=== PATIENT | male | born 1975 | race Caucasian/White ===

== ENCOUNTER 2024-12-06 00:25 | Emergency (ER) | payer SELFPAY ==
--- OUTSIDE RECORDS SUMMARY | 2022-07-25 10:07 | XMS_ITS | Continuity of Care Document ---
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 [address] [place], [place], [address] . tel: [phone] [facility], [address] [place], [place], [address] tel: [phone] [facility] No Information 2 James [place]. [address], [place], [address] . tel: [phone] OFFICE/OUTPAT IENT VISIT EST [facility], [address] [place], [place], [address] tel: [phone] [facility] Nursing Comments (chief complaint)H ep C Treatment Initiation (chief complaint) Body mass index (BMI) 28.0-28.9, adultChronic hepatitis C without hepatic coma 2 James [place]. [address], [place], [address] . tel: [phone] [facility], [address] [place], [address] tel:[phone] [facility] Personal history of other infectious and parasitic diseases 2 James [place]. [address], [place], [address] . tel: [phone] [facility], [address] [place], [address] tel:[phone] [facility] History of hepatitis C 2 James [place]. [address], [place], [address] . tel: [phone] [facility], [address] [place], [address] tel:[phone] [facility] History of hepatitis C 2 [facility]. [address], [place], [address] . tel: [phone] Office/outpat ient visit,[facility], [facility], [address] [place], [address] tel:[phone] [facility] Nursing Comments (chief complaint) Essential hypertension 1 [facility]. [address], [place], [address] . tel: [phone] [facility], [address] [place], [address] tel:[phone] [facility] No Information 1 [facility]. [address], [place], [address] . tel: [phone] Office/outpat ient visit,[facility], [address] [place], [address] tel:[phone] [facility] Nursing Comments (chief complaint)N P (chief complaint) Body mass index (BMI) 29.0-29.9, adultEncounter to establish careEncounter for screening for nutritional disorderHistory of hepatitis CImmunization dueEncounter for screening for HIVEssential hypertension 1 [facility]. [address], [place], [address] . tel: [phone] As per patient privacy policy some of [...] Hypertension Payers Payer name Insurance type Covered republican ID Authorflora tidesiree(s) No Information Social History [...] at 6AM . BP Check is 122/80.[facility] JA LAZO. Nursing Comments Patient present s today as a new patient to establish care with provider. Patient has Hepatitis C. 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 He is not fasting. Medications:None Surgeries/Hospitalizations:Appendectomy at age 8; it ruptured History of Hep C/Substance Abuse:Tested at [facility], was + for hep C; this was [...]
--- NOTE | 2024-12-06 00:30 | XRR_ITS ---
PROCEDURE INFORMATION: Exam: XR Chest Exam date and time: 12/06/2024 12:56 AM Age: 49 years old Clinical indication: Cough with hypertension; Additional info: Dyspnea/cough TECHNIQUE: Imaging protocol: Radiologic exam of the chest. Views: 1 view. COMPARISON: No relevant prior studies available. FINDINGS: Lungs: Unremarkable. No consolidation. Pleural spaces: Unremarkable. No pleural effusion. No pneumothorax. Heart/Mediastinum: Unremarkable. No cardiomegaly. Bones/joints: Unremarkable. XR/XR chest 1V portable [id number] IMPRESSION: No acute findings.
[2024-12-06 00:37] VITALS: BP 191/130; PULSE 106; RESP 22; TEMP 36.9; O2SAT 97; BMI 25.1
--- NOTE | 2024-12-06 00:43 | ECG_ITS ---
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 Measurements Intervals [place] Rate: 94 P: 56 [place]: 146 QRS: -71 QRSD: 98 T: 61 QT: 330 QTc: 414 Interpretive Statements SINUS RHYTHM POSSIBLE LEFT ATRIAL ENLARGEMENT [-0.1mV P-WAVE IN V1/V2] INCOMPLETE RIGHT BUNDLE BRANCH BLOCK [90+ ms QRS DURATION, TERMINAL R IN V1/V2, 40+ ms S IN I/aVL/V4/V5/V6] LEFT ANTERIOR FASCICULAR BLOCK [QRS AXIS <= -45, QR IN I, RS IN II] No previous ECG available for comparison Electronically Signed On 12-06-2024 21:39:45 CDT by Supriya Gtz M.D. [id number]
[2024-12-06 00:58] LABS: Hematocrit 45.6 % (37-53); Hemoglobin 15.80 g/dL (11.27-16.99); Mean Corpuscular HGB Conc 34.6 g/dL (30-55); Mean Corpuscular Hemoglobin 32.0 pg (27-33); Mean Corpuscular Volume 92.3 fl (82-101); Nucleated Red Blood Cells % 0 %; Platelet Count 232 10^3/cmm (157-399); Red Blood Count 4.94 10^6/uL (3.85-5.65); White Blood Count 6.92 10^3/uL (3.29-11.43)
[2024-12-06 01:17] LABS: Alanine Aminotransferase 107 U/L (0-41); Albumin Level 4.3 g/dL (3.5-5.2); Alkaline Phosphatase 104 U/L (40-130); Anion Gap 19.7 (5-19); Aspartate Amino Transferase 182 U/L (0-40); Blood Urea Nitrogen 12 mg/dL (6-20); Calcium 9.6 mg/dL (8.5-10.5); Carbon Dioxide 21 mmol/L (22-29); Chloride 101 mmol/L (98-107); Creatinine Clr Calc Pharmacy 110.5119; Globulin 3.2 g/dL (1.3-4.6); Glucose 101 mg/dL (65-115); Osmolality Calculated 286 mOsm/kg (285-295); Potassium 3.7 mmol/L (3.5-5.1); Sodium 138 mmol/L (136-145); Total Protein 7.5 g/dL (6.6-8.7)
--- NOTE | 2024-12-06 01:17 | ED_ITS ---
HPI - Recheck/Abnormal Lab/Rx 2 General: Chief Complaint: Recheck/Abnormal Lab/Rx Stated Complaint: High BP Time Seen by Provider: 12/06/24 00:30 History of Present Illness: 49-year-old male presents emergency room with complaint of elevated blood pressure. He was previously on lisinopril he evidently ran out of the is homeless seem came to this area he has not been able to get a refill of his medication he does not have a doctor locally. He denies any chest pain. He just generally does not feel well and his blood pressure gets elevated. Related Data Previous Rx's ?Medication ?Instructions ?Recorded amlodipine 5 mg tablet 5 mg PO DAILY #30 tabs 12/06 hydralazine 25 mg tablet 25 mg PO QID PRN anxiety #14 tabs 12/06/24 lisinopril 20 mg tablet 20 mg PO DAILY #30 tabs 05/31 Allergies Allergy/AdvReac Type Severity Reaction Status Date / Time No Known Allergies Allergy Verified 12/06/24 00:44 Review of Systems 2 Const: Denies: fever(s) or chills Card: Denies: chest pain Resp: Denies: dyspnea GI: Denies: abdominal pain : Denies: dysuria, urinary frequency or urinary urgency Musc: Denies: neck pain or back pain Skin/Breast: Denies: rash PFSH ED 2 PFSH: Medical History (Updated 12/06/24 @ 05:52 by Ruiz Boyce DO) HTN (hypertension), benign Physical Exam 2 Const: COMMON NORMALS: no acute distress GENERAL APPEARANCE: cooperative and comfortable ORIENTATION/CONSCIOUSNESS: Yes awake, Yes oriented to person, Yes oriented to place and Yes oriented to time HENMT: COMMON NORMALS: normocephalic, atraumatic and hearing grossly normal bilaterally HEAD & SCALP: normocephalic and atraumatic Resp: COMMON NORMALS: normal respiratory effort, No retractions, No use of accessory muscles and clear to auscultation bilaterally AUSCULTATION: clear to auscultation bilaterally Cardio: COMMON NORMALS: regular rate, regular rhythm and No murmurs present (Cardio) RATE: regular rate RHYTHM: regular rhythm Extremity: COMMON NORMALS: normal to inspection, capillary refill normal, no clubbing, cyanosis or edema, no calf tenderness and no pedal edema Neuro: SENSORIUM/ORIENTATION: Yes oriented to person, Yes oriented to place and Yes oriented to time Skin: COMMON NORMALS: no rashes or lesions noted GENERAL SKIN EXAM: no rashes or lesions noted Course 2 Vital Signs: Vital signs: Vital Signs Temperature 98.5 F 12/06/24 00:37 Pulse Rate 90 12/06/24 01:46 Respiratory Rate 22 H 12/06/24 00:37 Blood Pressure 164/123 12/06/24 01:46 Pulse Oximetry 94 12/06/24 01:46 Oxygen Delivery Me thod Room Air 12/06/24 01:46 MDM - Recheck/Abnormal Lab/Rx Medical Decision Making Laboratory tests reviewed chest external EKG unremarkable labs unremarkable other than mildly elevated liver enzymes which will need to be followed up as an outpatient. Started him on 20 of lisinopril and 5 of hydralazine open follow-up with a primary care doctor to establish to help maintain his blood pressure and recheck his liver functions Medical Records I reviewed the patient's medical records. Lab Data I reviewed the patient's lab results. 12/06/24 00:52 12/06/24 00:52 Radiology Impressions Chest X-Ray 12/06/24 00:30 IMPRESSION: No acute findings. Laboratory Results WBC 6.92 10^3/uL (3.29-11.43) 12/06/24 00:52 RBC 4.94 10^6/uL (3.85-5.65) 12/06/24 00:52 Hgb 15.80 g/dL (11.27-16.99) 12/06/24 00:52 Hct 45.6 % (37-53) 12/06/24 00:52 MCV 92.3 fl (82-101) 12/06/24 00:52 MCH 32.0 pg (27-33) 12/06/24 00:52 MCHC 34.6 g/dL (30-55) 12/06/24 00:52 RDW 13.9 % (12.1-15.1) 12/06/24 00:52 Plt Count 232 10^3/cmm (157-399) 12/06/24 00:52 MPV 9.4 fL (7.4-10.4) 12/06/24 00:52 Neut % (Auto) 58.3 % 12/06/24 00:52 Lymph % (Auto) 29.9 % 12/06/24 00:52 Otoe % (Auto) 9.5 % 12/06/24 00:52 Eos % (Auto) 1.2 % 12/06/24 00:52 Baso % (Auto) 1.0 % 12/06/24 00:52 Neut # (Auto) 4.03 10^3/uL (1.8-7.7) 12/06/24 00:52 Lymph # (Auto) 2.1 10^3/uL (0.8-4.8) 12/06/24 00:52 Otoe # (Auto) 0.7 10^3/uL (0.2-0.9) 12/06/24 00:52 Eos # (Auto) 0.1 10^3/uL (0.0-0.8) 12/06/24 00:52 Baso # (Auto) 0.1 10^3/uL (0.0-0.1) 12/06/24 00:52 Nucleated RBC % (auto) 0 % 12/06/24 00:52 Nucleated RBCs # 0.0 /100WBC 12/06/24 00:52 Sodium 138 mmol/L (136-145) 12/06/24 00:52 Potassium 3.7 mmol/L (3.5-5.1) 12/06/24 00:52 Chloride 101 mmol/L (98-107) 12/06/24 00:52 Carbon Dioxide 21 mmol/L (22-29) L 12/06/24 00:52 Anion Gap 19.7 (5-19) H 12/06/24 00:52 BUN 12 mg/dL (6-20) 12/06/24 00:52 Creatinine 0.9 mg/dL (0.7-1.2) 12/06/24 00:52 GFR Calculation 90.1 mL/min (90-130) 12/06/24 00:52 Glucose 101 mg/dL (65-115) 12/06/24 00:52 Calculated Osmolality 286 mOsm/kg (285-295) 12/06/24 00:52 Calcium 9.6 mg/dL (8.5-10.5) 12/06/24 00:52 Total Bilirubin 1.0 mg/dL (0.15-1.2) 12/06/24 00:52 AST 182 U/L (0-40) H 12/06/24 00:52 ALT 107 U/L (0-41) H 12/06/24 00:52 Alkaline Phosphatase 104 U/L (40-130) 12/06/24 00:52 Total Protein 7.5 g/dL (6.6-8.7) 12/06/24 00:52 Albumin 4.3 g/dL (3.5-5.2) 12/06/24 00:52 Globulin 3.2 g/dL (1.3-4.6) 12/06/24 00:52 All radiology interpretation(s) finalized by discharge EKG Data EKG 1: Interpretation: EKG 12/06/2024 12:36 AM sinus rhythm incomplete right bundle branch block rate of 94 WI interval 146 QTc 338 peaked T waves noted no EKG for comparison Discharge Plan Discharge Patient Disposition: Home Clinical Impression: HTN (hypertension), benign Condition: Stable Prescriptions: New lisinopril 20 mg tablet 20 mg PO DAILY Qty: 30 0RF amlodipine 5 mg tablet 5 mg PO DAILY Qty: 30 0RF No Action hydralazine 25 mg tablet 25 mg PO QID PRN (Reason: anxiety) Qty: 14 0RF Discharge Orders: Discharge ED (Routine); Ordered 12/06/24 Ordered By: Ruiz Boyce Referrals: Darius Sanchez DO [Physician, Family Practice] Alice Miramontes MD [Physician, Family Practice] Ria Romano MD [Staff Physician, Family Practice] Gary Kirby MD [Physician, Family Practice] Discharge Diet: Usual diet Discharge Activity: Increase activity as tolerated Patient Instructions: Hypertension (ED), Opioid Safety, Pain Management, Patient Portal & Carlo Instructions Activity Restrictions/Additional Instructions: Thank you for choosing [facility] for your healthcare needs today. It is very important that you follow up as instructed or that you return to the Emergency Department should you have concerns or if your condition changes or worsens in any way. Emergency department visits are focused on emergent conditions, in some cases you may require further evaluation on an outpatient basis. You were seen in the emergency room with complaints of elevated blood pressure. Recommend you start lisinopril 20 mg once daily amlodipine 5 mg daily. You should establish with a primary care physician to continue your blood pressure medications and make adjustments as appropriate to achieve appropriate blood pressure. Your liver functions were also slightly elevated this should be followed up with your primary care doctor (Please note that included in your discharge packet is information concerning opioid safety and pain management. This information is given to all patients were discharged from the ER regardless of their discharge diagnosis or the medicines they usually take or are prescribed.) Print Language: Citizen Of [place] Coding Level of Care Code ED Hiv Prevention Specialist for Sofi Bishop
[2024-12-06 01:46] VITALS: BP 164/123; PULSE 90; O2SAT 94
[2024-12-06] MEDS: hyDRALAzine 20 mg/mL INJ 1 mL IM (01:59)
== END 2024-12-06 02:14 | disposition home or self-care (01) ==
PROVIDERS: Emergency Provider Family Medicine
DX: I10 Essential (primary) hypertension (principal)
CPT/HCPCS: 36415; 71045; 80053; 85025; 93005; 96372; 99285; J0360

== ENCOUNTER 2024-12-06 03:26 | Emergency (ER) | payer SELFPAY ==
--- OUTSIDE RECORDS SUMMARY | 2022-07-25 10:07 | XMS_ITS | Continuity of Care Document ---
Author Organization [employer] ems Address [address] [place] [address] [place] [address] Phone Care Team Providers Care Basket Filler Name Role Phone Provider, CHS Unavailable Unavailable [...] Diagnoses Date Provider Providers Copied on Encounter [facility], [address] [place], [place], [address] tel:[phone] [facility] No Information 3 Provider [facility]. [address] [place], [place], [address] . tel: [phone] [facility], [address] [place], [place], [address] tel: [phone] [facility] No Information 2 James [place]. [address], [place], [address] . tel: [phone] OFFICE/OUTPAT IENT VISIT EST [facility], [address] [place], [place], [address] tel: [phone] [facility] Nursing Comments (chief complaint)H ep C Treatment Initiation (chief complaint) Body mass index (BMI) 28.0-28.9, adultChronic hepatitis C without hepatic coma 2 James [place]. [address], [place], [address] . tel: [phone] [facility], [address] [place], [address] tel:[phone] [facility] Personal history of other infectious and parasitic diseases 2 James [place]. [address], [place], [address] . tel: [phone] [facility], [address] [place], [address] tel:[phone] [facility] History of hepatitis C 2 James [place]. [address], [place], [address] . tel: [phone] [facility], [address] [place], [address] tel:[phone] [facility] History of hepatitis C 2 [facility]. [address], [place], [address] . tel: [phone] Office/outpat ient visit,[facility], [facility], [address] [place], [place], [address] tel:[phone] [facility] Nursing Comments (chief complaint) Essential hypertension 1 [facility]. [address], [place], [address] . tel: [phone] [facility], [address], [place], [address] tel:[phone] [facility] No Information 1 [facility]. [address], [place], [address] . tel: [phone] Office/outpat ient visit,[facility], [address] [place], [place], [address] tel:[phone] [facility] Nursing Comments (chief complaint)N P (chief complaint) Body mass index (BMI) 29.0-29.9, adultEncounter to establish careEncounter for screening for nutritional disorderHistory of hepatitis CImmunization dueEncounter for screening for HIVEssential hypertension 1 [facility]. [address], [place], [address] . tel: [phone] As per patient privacy policy some of [...] disorder Payers Payer name Insurance type Covered constitution party ID Authoriza tidesiree(s) No Information Social [...] taken at 6AM . BP Check is 122/80.[facility] JA LAZO. Nursing Comments Patient present s today as a new patient to establish care with provider. Patient has Hepatitis C. 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 He is not fasting. Medications:None Surgeries/Hospitalizations:Appendectomy at age 8; it ruptured History of Hep C/Substance Abuse:Tested at [facility], was + for hep C; this was [...] to Body mass index [BMI] 28.0-28.9, adult Will do hepatitis C testing today. Once labs are back, will let you know what it shows and further recommendations. Explained process of hep C treatment with patient. Discussed signs/symptoms that would warrant immediate re-evaluation, patient verbalized understanding. Related to History of hepatitis C Declined vaccines. Related to Im munization due BP in office is abov e normal [...] Related to Encounter for screening for HIV Non-fasting labs to be done today in office. Once results are back, will let you know what they are and further recommendations. Related to Encounter for screening for nutritional disorder New Patient Health H istory Questionnaire reviewed with patient. Records requested. Related to Encounter to establish care Eat a heart healthy diet- lean meats, [...]
[2024-12-06 03:30] VITALS: BP 186/120; PULSE 126; RESP 18; TEMP 36.4; O2SAT 96; BMI 25.1
--- NOTE | 2024-12-06 03:37 | ECG_ITS ---
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 Measurements Intervals [place] Rate: 112 P: 45 UT: 104 QRS: -75 QRSD: 98 T: 60 QT: 319 QTc: 436 Interpretive Statements SINUS TACHYCARDIA WITH SHORT UT INTERVAL POSSIBLE LEFT ATRIAL ENLARGEMENT [-0.1mV P-WAVE IN V1/V2] INCOMPLETE RIGHT BUNDLE BRANCH BLOCK [90+ ms QRS DURATION, TERMINAL R IN V1/V2, 40+ ms S IN I/aVL/V4/V5/V6] LEFT ANTERIOR FASCICULAR BLOCK [QRS AXIS <= -45, QR IN I, RS IN II] MODERATE ST DEPRESSION [0.05+ mV ST DEPRESSION] No previous ECG available for comparison Electronically Signed On 12-06-2024 21:38:38 CDT by Supriya Gtz M.D. [email or web address]
--- NOTE | 2024-12-06 03:53 | W.ED.ANXIETY ---
HPI - Anxiety General: Chief Complaint: Anxiety Stated Complaint: BP High\Anxiety Time Seen by Provider: 12/06/24 03:35 History of Present Illness: 49-year-old male presents again with a elevated blood pressure and dizziness. He was here earlier with elevated blood pressure and anxiety. We discharged him home with a prescription for blood pressure medications. 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 He has a dog with him today 4-month-old puppy he has a difficult time controlling it when he was here earlier the dog urinated on the floor. Associated symptoms: Deny chest pain, chills or fever(s) Related Data Previous Rx's ?Medication ?Instructions ?Recorded amlodipine 5 mg tablet 5 mg PO DAILY #30 tabs 12/06/24 hydralazine 25 mg tablet 25 mg PO QID PRN anxiety #14 tabs 12/06/24 lisinopril 20 mg tablet 20 mg PO DAILY #30 tabs 12/06/24 Allergies Allergy/AdvReac Type Severity Reaction Status Date / Time No Known Allergies Allergy Verified 12/06/24 00:44 Review of Systems Const: Denies: fever(s) or chills Card: Denies: chest pain Resp: Denies: dyspnea GI: Denies: abdominal pain : Denies: dysuria, urinary frequency or urinary urgency Musc: Denies: neck pain or back pain Skin/Breast: Denies: rash [facility] ED PFSH: Medical History (Updated 12/06/24 @ 05:52 by Ruiz Boyce DO) HTN (hypertension), benign Physical Exam Const: COMMON NORMALS: no acute distress GENERAL APPEARANCE: cooperative ORIENTATION/CONSCIOUSNESS: Yes awake, Yes oriented to person, Yes oriented to place and Yes oriented to time HENMT: COMMON NORMALS: normocephalic, atraumatic and hearing grossly normal bilaterally HEAD & SCALP: normocephalic and atraumatic Resp: COMMON NORMALS: normal respiratory effort, No retractions, No use of accessory muscles and clear to auscultation bilaterally AUSCULTATION: clear to auscultation bilaterally Cardio: COMMON NORMALS: regular rhythm and No murmurs present (Cardio) RATE: tachycardic RHYTHM: regular rhythm GI: COMMON NORMALS: Soft to palpation and No hepatosplenomegaly present AUSCULTATION: Yes normoactive bowel sounds PALPATION: Yes Soft to palpation, No Tenderness to palpation present (GI), No Guarding due to palpation present (GI) and Yes No hepatosplenomegaly present Extremity: COMMON NORMALS: normal to inspection, capillary refill normal, no clubbing, cyanosis or edema, no calf tenderness and no pedal edema Neuro: SENSORIUM/ORIENTATION: Yes oriented to person, Yes oriented to place and Yes oriented to time Skin: COMMON NORMALS: no rashes or lesions noted GENERAL SKIN EXAM: no rashes or lesions noted Course Vital Signs: Vital signs: Vital Signs Temperature 97.6 F 12/06/24 03:30 Pulse Rate 112 H 12/06/24 04:01 Respiratory Rate 18 12/06/24 03:30 Blood Pressure 148/102 12/06/24 05:53 Pulse Oximetry 97 12/06/24 04:01 Oxygen Delivery Me thod Room Air 12/06/24 04:01 MDM - Anxiety Medical Decision Making Patient improved after Ativan. His blood pressures improved as well. Will discharge him home recommend he get the prescriptions for the antihypertensive prescribed previously. Give him hydroxyzine to use as needed for anxiety encouraged him to follow-up with the crisis stabilization unit and search out other community-based resources for assistance that she sobriety either through the [facility] or through [facility]. Medical Records I reviewed the patient's medical records. Lab Data I reviewed the patient's lab results. Laboratory Results Urine Color Caroline (Yellow) A 12/06/24 05:16 Urine Appearance Clear (CLEAR) 12/06/24 05:16 Urine pH 6.0 (5-7) 12/06/24 05:16 Ur Specific [place] 1.030 (1.005-1.030) 12/06/24 05:16 Urine Protein 1+ (Negative) A 12/06/24 05:16 Urine Glucose (UA) Negative (Normal) 12/06/24 05:16 Urine Ketones 1+ (Negative) H 12/06/24 05:16 Urine Blood Negative (Negative) 12/06/24 05:16 Urine Nitrate Negative (Negative) 12/06/24 05:16 Urine Bilirubin 1+ (Negative) H 12/06/24 05:16 Urine Urobilinogen 1.0 mg/dL (Negative) 12/06/24 05:16 Ur Leukocyte Esterase Trace (Negative) A 12/06/24 05:16 Urine RBC 0-2 /hpf (0-2) 12/06/24 05:16 Urine WBC 0-5 /hpf (0-5) 12/06/24 05:16 Ur Squamous Epith Cells 0-5 /hpf (0-5) 12/06/24 05:16 Amorphous Sediment Not Reportable 12/06/24 05:16 Urine Bacteria None seen /hpf (NONE) 12/06/24 05:16 Hyaline Casts 1.21 /lpf 12/06/24 05:16 Urine Opiates Screen Negative ng/mL (Negative) 12/06/24 05:16 Ur Barbiturates Screen Negative ng/mL (Negative) 12/06/24 05:16 Ur Phencyclidine Scrn Negative ng/mL (Negative) 12/06/24 05:16 Ur Amphetamines Screen Negative ng/mL (Negative) 12/06/24 05:16 U Benzodiazepines Scrn Negative ng/mL (Negative) 12/06/24 05:16 Urine Cocaine Screen Negative ng/mL (Negative) 12/06/24 05:16 U Marijuana (THC) Screen Positive ng/mL (Negative) H 12/06/24 05:16 Ethyl Alcohol 16 mg/dL (0-10) H 12/06/24 03:46 No radiology studies performed this visit EKG Data EKG 1: Interpretation: EKG 12/06/2024 3:40 AM sinus tachycardia. Rate of 112 TN interval 104 QTc [address] elevation. Rate related ST depression. Incomplete right bundle branch block. No previous EKGs for comparison Discharge Plan Discharge Patient Disposition: Home Clinical Impression: Acute anxiety, HTN (hypertension), benign, Alcohol use disorder Condition: Stable Prescriptions: New hydralazine 25 mg tablet 25 mg PO QID PRN (Reason: anxiety) Qty: 14 0RF No Action lisinopril 20 mg tablet 20 mg PO DAILY Qty: 30 0RF amlodipine 5 mg tablet 5 mg PO DAILY Qty: 30 0RF Discharge Orders: Discharge ED (Routine); Ordered 12/06/24 Ordered By: Ruiz Boyce Discharge Diet: Usual diet Discharge Activity: Resume usual activity Patient Instructions: Opioid Safety, Pain Management, Patient Portal & Carlo Instructions Activity Restrictions/Additional Instructions: Thank you for choosing [facility] for your healthcare needs today. It is very important that you follow up as instructed or that you return to the Emergency Department should you have concerns or if your condition changes or worsens in any way. Emergency department visits are focused on emergent conditions, in some cases you may require further evaluation on an outpatient basis. You are seen emergency room with complaints of anxiety. Recommend you get the blood pressure medications that are prescribed to you previously. You are given hydroxyzine to use as needed for anxiety also recommend abstaining from alcohol. You can follow-up with the crisis intervention center they can help you with resources to pursue sobriety. [facility] is also another local resource for substance abuse. (Please note that included in your discharge packet is information concerning opioid safety and pain management. This information is given to all patients were discharged from the ER regardless of their discharge diagnosis or the medicines they usually take or are prescribed.) Print Language: Hungarian Coding Level of Care Code ED Timber Management Professor for Sofi Bishop
[2024-12-06 04:01] VITALS: BP 180/127; PULSE 112; O2SAT 97
[2024-12-06] MEDS: labetalol 5 mg/mL SDV 20mL 10 MG IVP (04:03)
[2024-12-06] MEDS: hyDRALAzine 20 mg/mL INJ 1 mL 10 MG IVP (04:03)
[2024-12-06 04:08] LABS: Alcohol Level 16 mg/dL (0-10)
[2024-12-06 04:16] VITALS: BP 155/128
[2024-12-06 05:29] LABS: Glucose Urine UA Negative (Normal); Nitrate Urine Negative (Negative); Specific Gravity, Urine 1.030 (1.005-1.030)
[2024-12-06 05:34] LABS: Add Urine Microscopic? YES
[2024-12-06 05:35] LABS: PCP Screen Urine Negative (Negative)
[2024-12-06 05:53] VITALS: BP 148/102
== END 2024-12-06 06:03 | disposition home or self-care (01) ==
PROVIDERS: Emergency Provider Family Medicine
DX: F41.8 Other specified anxiety disorders (principal); I10 Essential (primary) hypertension; F10.129 Alcohol abuse with intoxication, unspecified; Y90.0 Blood alcohol level of less than 20 mg/100 ml
CPT/HCPCS: 36415; 80306; 80307; 81001; 93005; 96374; 96375; 99284; J0360; J3490; J9999

== ENCOUNTER 2025-02-14 21:18 | Emergency (ER) | payer SELFPAY ==
--- OUTSIDE RECORDS SUMMARY | 2022-07-25 09:07 | XMS_ITS | Continuity of Care Document ---
Author Organization [employer] ems Address [address] [place] [address] [place] [address] Phone Care Team Providers Care Fiscal Technician Name Role Phone Provider, CHS Unavailable Unavailable Allergies, Adverse Reactions, Alerts Substance Reaction Status Criticality No Known Allergies Active No Inform ation Medications Medication Instructions Dosage Effective Dates (start - stop) Status Comments Epclusa 400 mg-100 mg tablet take 1 tablet by oral route every day. - No Longer Active PAP lisinopril 5 mg tablet take 1 tablet by oral route every day 5 MG - No Longer Active Procedures Procedure Date OFFICE/OUTPATIENT VISIT EST Automated hemogram (CBC) Metabolic panel, comprehensive 22 Liver Elastography Automated hemogram (CBC) Prothrombin time Metabolic panel, comprehensive Hepatitis panel, acute Office/outpatient visit,est, min 2020 HG A1C LEVEL < 7.0% Alcohol/Subs Interv 15-30 Min Office/outpatient visit,new, mod 2020 Glycosylated hemoglobin assay Assay thyroid stimulating hormone Automated hemogram (CBC) HIV-1 AG W/HIV-1 & HIV-2 AB Antibody, hepatitis C Lipid Panel Metabolic panel, comprehensive 21 Drug test presump, any # devic/proc, by instru Advance Directives Directive Yes / No Effective Date File Name No Information Encounters Encounter Description Practice Location Reason(s) For Visit Diagnoses Date Provider Providers Copied on Encounter [facility], [address] [place], [place], [address] tel:[phone] [facility] No Information 3 Provider [facility]. [address] [place], [place], [address] . tel: [phone] [facility], [address] [place], [place], [address] tel: [phone] [facility] No Information 2 James [place]edo. [address] [place], [place], [address] . tel: [phone] OFFICE/OUTPAT IENT VISIT EST [facility], [address] [place], [address] tel: [phone] [facility] Nursing Comments (chief complaint)H ep C Treatment Initiation (chief complaint) Body mass index (BMI) 28.0-28.9, adultChronic hepatitis C without hepatic coma 2 James [place]edo. [address] [place], [place], [address] . tel: [phone] [facility], [address] [place], [place], [address] tel:[phone] [facility] Personal history of other infectious and parasitic diseases 2 [address] [place]. [address] [place], [place], [address] . tel: [phone] [facility], [address] [place], [address] tel:[phone] [facility] History of hepatitis C 2 James Duffytany. [address] [place], [place], [address] . tel: [phone] [facility], [address] [place], [address] tel:[phone] [facility] History of hepatitis C 2 [facility]. [address] [place], [place], [address] . tel: [phone] Office/outpat ient visit,[facility], [facility], [address], [place], [address] tel:[phone] [facility] Nursing Comments (chief complaint) Essential hypertension 1 [facility]. [address] [place], [place], [address] . tel: [phone] [facility], [address], [address] tel:[phone] [facility] No Information 1 [facility]. [address] [place], [place], [address] . tel: [phone] Office/outpat ient visit,[facility], [address] [place], [place], [address] tel:[phone] [facility] Nursing Comments (chief complaint)N P (chief complaint) Body mass index (BMI) 29.0-29.9, adultEncounter to establish careEncounter for screening for nutritional disorderHistory of hepatitis CImmunization dueEncounter for screening for HIVEssential hypertension 1 [facility]. [address] [place], [place], [address] . tel: [phone] As per patient privacy policy some of the clinical information may not be visible. Family History Family Member Type Diagnosis Age At Onset Sister Problem (finding) Bipolar disorder Father Problem (finding) Seizure disorder Sister Problem (finding) Seizure disorder Father Problem (finding) Hypertension Father Problem (finding) Bipolar disorder Mother Problem (finding) Bipolar disorder Mother Problem (finding) Seizure disorder Mother Problem (finding) Hypertension Sister Problem (finding) Hypertension Payers Payer name Insurance type Covered constitution party ID Authorflora tidesiree(s) No Information Social History Type Description Quantity Date Captured Comments Alcohol Use Details Unknown Caffeine Use Details Unknown Tobacco Use Status No Information Smoking Status No Information Sex Male Sexual Orientation Straight or heterosexual Gender Identity Male Plan Of Treatment Date Type Action Status Goal Dietary management education , guidance, and counseling completed Goal Dietary management education , guidance, and counseling completed Referral Ordered: Liver elastography with interpretation and report Appointment date/timeframe: 06/25/2021 ordered History Of Present Illness Encounter Date Complaint History Of Prese nt Illness Hep C Treatment Initiation Ming is a 45 yr old male here today to discuss starting hep C treatment. Aware of risks vs benefits Fibroscan was normalLabs from 04/2021 were normalWill check CBC/CMP today Once labs are back, will send in RX to PAP programPatient to call once he has medication in hand Nursing Comments Patient present s today for Hepatitis testing . RN. Nursing Comments Pt here today f or BP Check per Providers request. BP meds were taken at 6AM . BP Check is 122/80.[facility] JA LAZO. Nursing Comments Patient present s today as a new patient to establish care with provider. Patient has Hepatitis C. 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 He is not fasting. Medications:None Surgeries/Hospitalizations:Appendectomy at age 8; it ruptured History of Hep C/Substance Abuse:Tested at [facility], was + for hep C; this was about 6-7 months ago Wants treatmentHas used cocaine, heroin, LSD, Marijuana, Meth, Ecstasy Last use of meth was 9.5 months agoHypertension:BP in office is 144/94Recheck was 142/96Not been taking LisinoprilPreviously on Lisinopril 10 mg Functional Status Date Functional Assessmen t No Information Instructions Date Instruction Additional Infor mation Labs to be done toda y- once results are back, will let you know what they are and further recommendations. Will send in RX to PAP program once labs are back. Patient to call clinic once medication is in hand to review dosing instructions. Risks vs benefits reviewed. Discussed signs/symptoms that would warrant immediate re-evaluation, patient verbalized understanding. Related to Chronic hepatitis C without hepatic coma Eat a heart healthy diet- lean meats, plenty of fresh fruits and veggies, drink plenty of water to stay hydrated. Get at least 30 minutes of physical activity at least 4 times/week. Related to Body mass index (BMI) 28.0-28.9, adult Dietary management e ducation, guidance, and counseling Related to Body mass index [BMI] 28.0-28.9, adult Declined vaccines. Related to Im munization due Will do hepatitis C testing today. Once labs are back, will let you know what it shows and further recommendations. Explained process of hep C treatment with patient. Discussed signs/symptoms that would warrant immediate re-evaluation, patient verbalized understanding. Related to History of hepatitis C BP in office is abov e normal limits. Advised to begin to take medication as directed (Lisinopril 5 mg) and return in 2 weeks to recheck BP. Eat a heart healthy diet, limiting excess sodium, drink plenty of water. Denies chest pain or palpitations. Discussed signs/symptoms that would warrant immediate re-evaluation, patient verbalized understanding. Related to Essential hypertension HIV screening done p er screening guidelines. Related to Encounter for screening for HIV New Patient Health H istory Questionnaire reviewed with patient. Records requested. Related to Encounter to establish care Non-fasting labs to be done today in office. Once results are back, will let you know what they are and further recommendations. Related to Encounter for screening for nutritional disorder Eat a heart healthy diet- lean meats, plenty of fresh fruits and veggies, drink plenty of water to stay hydrated. Get at least 30 minutes of physical activity at least 4 times/week. Related to Body mass index (BMI) 29.0-29.9, adult Dietary management e ducation, guidance, and counseling Related to Body mass index [BMI] 29.0-29.9, adult As per patient privacy policy some of the clinical information may not be visible. Assessments Type Assessment Date No Information Patient Care Teams Name Effective Dates (start - stop) Status Members No Information
--- NOTE | 2025-02-14 21:28 | ECG_ITS ---
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1975 Requested By: Fany Willingham Order Number: [id number] Reading MD: Measurements Intervals [place] Rate: 107 P: 63 MO: 155 QRS: -71 QRSD: 101 T: 62 QT: 325 QTc: 435 Interpretive Statements SINUS TACHYCARDIA LEFT ATRIAL ENLARGEMENT [-0.15mV P-WAVE IN V1/V2] PATTERN CONSISTENT WITH PULMONARY DISEASE INCOMPLETE RIGHT BUNDLE BRANCH BLOCK [90+ ms QRS DURATION, TERMINAL R IN V1/V2, 40+ ms S IN I/aVL/V4/V5/V6] LEFT ANTERIOR FASCICULAR BLOCK [QRS AXIS <= -45, QR IN I, RS IN II] PROBABLE INFERIOR MYOCARDIAL INFARCTION , OF INDETERMINATE AGE [35 ms Q WAVE IN II/aVF] No previous ECG available for comparison [email or web address]
[2025-02-14 21:29] VITALS: BP 138/62; PULSE 111; RESP 20; TEMP 36.8; O2SAT 97; BMI 24.4
--- NOTE | 2025-02-14 22:24 | ED_ITS ---
HPI - Recheck/Abnormal Lab/Rx General: Chief Complaint: Recheck/Abnormal Lab/Rx Stated Complaint: High BP Time Seen by Provider: 02/14/25 22:16 Source: patient Mode of arrival: ambulatory Limitations: no limitations History of Present Illness: Patient is a 49-year-old male who presents to ED today requesting a medication refill of his lisinopril and hydroxyzine. He states he takes these for hyperten henrry and anxiety. Patient states he does not have a primary care provider as he is homeless and uninsured. Patient has no physical complaints upon arrival. complaint: medication refill request Initial visit for: other (RX) Returns today for: request for prescription Symptoms since prior visit: no new symptoms Context: ran out of medication Associated symptoms: none Related Data Previous Rx's ?Medication ?Instructions ?Recorded hydroxyzine HCl 25 mg tablet 25 mg PO Q8H PRN anxiety #20 tabs 02/14/25 lisinopril 20 mg tablet 20 mg PO DAILY #30 tabs 02/04 04/30 Allergies Allergy/AdvReac Type Severity Reaction Status Date / Time No Known Allergies Allergy Verified 02/14/25 21:33 Review of Systems Eyes: Denies: change in vision Card: Denies: chest pain Neuro: Denies: headache(s) PFS ED PFSH: Medical History HTN (hypertension), benign Physical Exam Const: COMMON NORMALS: no acute distress, no limitations, alert and well nou rished GENERAL APPEARANCE: cooperative, anxious and disheveled Resp: COMMON NORMALS: normal respiratory effort and clear to auscultation bilaterally AUSCULTATION: clear to auscultation bilaterally Cardio: COMMON NORMALS: regular rate and regular rhythm RATE: regular rate RHYTHM: regular rhythm Neuro: SENSORIUM/ORIENTATION: Yes alert Course Vital Signs: Vital signs: Vital Signs Temperature 98.2 F 02/14/25 21:29 Pulse Rate 111 H 02/14/25 21:29 Respiratory Rate 20 H 02/14/25 21:29 Blood Pressure 138/62 02/14/25 21:29 Pulse Oximetry 97 02/14/25 21:29 Oxygen Delivery Me thod Room Air 02/14/25 21:29 MDM - Recheck/Abnormal Lab/Rx Medical Decision Making Patient will be provided refills as requested. He states he will be traveling back to [place] soon and will try to get a primary care provider established there. Differential Diagnosis Likely encounter for medication refill No radiology studies performed this visit Discharge Plan Discharge Patient Disposition: Home Clinical Impression: Encounter for medication refill, Anxiety Hypertension Qualifiers: Hypertension type: primary hypertension Qualified Code(s): I10 - Essential (primary) hypertension Condition: Stable Prescriptions: Continued lisinopril 20 mg tablet 20 mg PO DAILY Qty: 30 0RF hydroxyzine HCl 25 mg tablet 25 mg PO Q8H PRN (Reason: anxiety) Qty: 20 0RF Discontinued amlodipine 5 mg tablet 5 mg PO DAILY Qty: 30 0RF Discharge Orders: Discharge ED (Routine); Ordered 02/14/25 Ordered By: Fany Willingham Patient Instructions: Patient Portal & Carlo Instructions Print Language: Botswanan Coding Level of Care Code ED Chainstitch Tunnel Elastic Operator for Sofi Bishop
== END 2025-02-14 22:27 | disposition home or self-care (01) ==
PROVIDERS: Emergency Provider Physician Assistant
DX: Z76.0 Encounter for issue of repeat prescription (principal); F41.9 Anxiety disorder, unspecified; I10 Essential (primary) hypertension
CPT/HCPCS: 93005; 99283

== ENCOUNTER 2025-02-21 16:22 | Emergency (ER) | payer SELFPAY ==
--- OUTSIDE RECORDS SUMMARY | 2022-07-25 09:07 | XMS_ITS | Continuity of Care Document ---
Author Organization [email or web address] ems Address [address] [place] [address] [place] [address] Phone Care Team Providers Care Sound Effects Person Name Role Phone Provider, CHS Unavailable Unavailable [...] Diagnoses Date Provider Providers Copied on Encounter [facility], [address] [place], [place], [address] tel:[phone] [facility] No Information 3 Provider [facility]. [address] [place], [place], [address] . tel: [phone] [facility], [address] [place], [place], [address] tel: [phone] [facility] No Information 2 James Toledo. [address] [place], [place], [address] . tel: [phone] OFFICE/OUTPAT IENT VISIT EST [facility], [address] [place], [place], [address] tel: [phone] [facility] Nursing Comments (chief complaint)H ep C Treatment Initiation (chief complaint) Body mass index (BMI) 28.0-28.9, adultChronic hepatitis C without hepatic coma 2 James [place]. [address] [place], [place], [address] . tel: [phone] [facility], [address] [place], [address] tel:[phone] [facility] Personal history of other infectious and parasitic diseases 2 James Toledo. [address] [place], [place], [address] . tel: [phone] [facility], [address] [place], [address] tel:[phone] [facility] History of hepatitis C 2 James Duffytany. [address] [place], [place], [address] . tel: [phone] [facility], [address] [place], [address] tel:[phone] [facility] History of hepatitis C 2 [facility]. [address] [place], [place], [address] . tel: [phone] Office/outpat ient visit,[facility], [facility], [address], [address] tel:[phone] [facility] Nursing Comments (chief complaint) Essential hypertension 1 [facility]. [address] [place], [place], [address] . tel: [phone] [facility], [address] [place], [address] tel:[phone] [facility] No Information 1 [facility]. [address] [place], [place], [address] . tel: [phone] Office/outpat ient visit,[facility], [address] [place], [address] tel:[phone] [facility] Nursing Comments (chief complaint)N P (chief complaint) Body mass index (BMI) 29.0-29.9, adultEncounter to establish careEncounter for screening for nutritional disorderHistory of hepatitis CImmunization dueEncounter for screening for HIVEssential hypertension 1 [facility]. [address] [place], [place], [address] . tel: [phone] As per patient privacy policy some of the clinical information may not be visible. Family History Family Member Type Diagnosis Age At Onset Sister Problem (finding) Bipolar disorder Father Problem (finding) Hypertension Father Problem (finding) Bipolar disorder Mother Problem (finding) Bipolar disorder Mother Problem (finding) Hypertension Sister Problem (finding) Hypertension Father Problem (finding) Seizure disorder Sister Problem (finding) Seizure disorder Mother Problem (finding) Seizure disorder Payers Payer name Insurance type Covered green party ID Authoriza tidesiree(s) No Information Social History Type Description [...] taken at 6AM . BP Check is 122/80.[facility] JA LAZO. Nursing Comments Patient present s today as a new patient to establish care with provider. Patient has Hepatitis C. 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 He is not fasting. Medications:None Surgeries/Hospitalizations:Appendectomy at age 8; it ruptured History of Hep C/Substance Abuse:Tested at [facility], was + for hep C; this [...] Related to Encounter for screening for HIV Eat a heart healthy diet- lean meats, plenty of fresh fruits and veggies, drink plenty of water to stay hydrated. Get at least 30 minutes of physical activity at least 4 times/week. Related to Body mass index (BMI) 29.0-29.9, adult Non-fasting labs to be done today in office. Once results are back, will let you know what they are and further recommendations. Related to Encounter for screening for nutritional disorder New Patient Health H istory Questionnaire reviewed with patient. Records requested. Related to Encounter to establish care Dietary management e ducation, guidance, and counseling Related to Body mass index [BMI] 29.0-29.9, adult As per patient privacy policy some of the clinical information may not be visible. Assessments Type Assessment Date No Information Patient Care Teams Name Effective Dates (start - stop) Status Members No Information
--- OUTSIDE RECORDS SUMMARY | 2022-07-25 09:07 | XMS_ITS | Continuity of Care Document ---
Author Organization [employer] ems Address [address] [place] [address] [place] [address] Phone Care Team Providers Care Tool Shaper Set Up Operator Name Role Phone Provider, CHS Unavailable Unavailable [...] Diagnoses Date Provider Providers Copied on Encounter [facility], [address] [place], [place], [address] tel:[phone] [facility] No Information 3 Provider [facility]. [address] [place], [place], [address] . tel: [phone] [facility], [address] [place], [place], [address] tel: [phone] [facility] No Information 2 James [place]. [address] [place], [place], [address] . tel: [phone] OFFICE/OUTPAT IENT VISIT EST [facility], [address] [place], [place], [address] tel: [phone] [facility] Nursing Comments (chief complaint)H ep C Treatment Initiation (chief complaint) Body mass index (BMI) 28.0-28.9, adultChronic hepatitis C without hepatic coma 2 [address] [place]. [address] [place], [place], [address] . tel: [phone] [facility], [address] [place], [place], [address] tel:[phone] [facility] Personal history of other infectious and parasitic diseases 2 James [place]. [address] [place], [place], [address] . tel: [phone] [facility], [address] [place], [address] tel:[phone] [facility] History of hepatitis C 2 James [address]uff[address]. [address] [place], [place], [address] . tel: [phone] [facility], [address] [place], [address] tel:[phone] [facility] History of hepatitis C 2 [facility]. [address] [place], [place], [address] . tel: [phone] Office/outpat ient visit,[facility], [facility], [address] [place], [address] tel:[phone] [facility] Nursing Comments (chief complaint) Essential hypertension [address] [facility]. [address] [place], [place], [address] . tel: [phone] [facility], [address] [place], [address] tel:[phone] [facility] No Information [address] [facility]. [address] [place], [place], [address] . tel: [phone] Office/outpat ient visit,[facility], [address] [place] [place], [address] tel:[phone] [facility] Nursing Comments (chief complaint)N P (chief complaint) Body mass index (BMI) 29.0-29.9, adultEncounter to establish careEncounter for screening for nutritional disorderHistory of hepatitis CImmunization dueEncounter for screening for HIVEssential hypertension 1 [facility]. [address] [place], [place], [address] . tel: [phone] As per patient privacy policy some of the clinical information may not be visible. Family History Family Member Type Diagnosis Age At Onset Sister Problem (finding) Hypertension Mother Problem (finding) Hypertension Mother Problem (finding) Seizure disorder Mother Problem (finding) Bipolar disorder Father Problem (finding) Bipolar disorder Father Problem (finding) Hypertension Sister Problem (finding) Seizure disorder Father Problem (finding) Seizure disorder Sister Problem (finding) Bipolar disorder Payers Payer name Insurance type Covered green party ID Authoriza tion(s) No Information Social History Type Description Quantity [...] Date Complaint History Of Prese nt Illness Nursing Comments Patient present s today for Hepatitis testing . RN. Hep C Treatment Initiation Ming is a 45 yr old male here today to discuss starting hep C treatment. Aware of risks vs benefits Fibroscan was normalLabs from 04/2021 were normalWill check CBC/CMP today Once labs are back, will send in RX to PAP programPatient to call once he has medication in hand Nursing Comments Pt here today f or BP Check per Providers request. BP meds were taken at 6AM . BP [facility] 122/[facility] 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 He is not fasting. Medications:None Surgeries/Hospitalizations:Appendectomy at age 8; it ruptured History of Hep C/Substance Abuse:Tested at [facility], was + for hep C; this was about 6-7 months ago Wants treatmentHas used cocaine, heroin, LSD, Marijuana, Meth, Ecstasy Last use of meth was 9.5 months agoHypertension:BP in office is 144/94Recheck was 142/96Not been taking LisinoprilPreviously on Lisinopril 10 mg Nursing Comments Patient present s today as a new patient to establish care with provider. Patient has Hepatitis C. 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 Functional Status Date Functional Assessmen t No [...] to Body mass index (BMI) 29.0-29.9, adult New Patient Health H istory Questionnaire reviewed with patient. Records requested. Related to Encounter to establish care Non-fasting labs to be done today in office. Once results are back, will let you know what they are and further recommendations. Related to Encounter for screening for nutritional disorder Dietary management e ducation, guidance, and counseling Related to Body mass index [BMI] 29.0-29.9, adult As per patient privacy policy some of the clinical information may not be visible. Assessments Type Assessment Date No Information Patient Care Teams Name Effective Dates (start - stop) Status Members No Information
--- OUTSIDE RECORDS SUMMARY | 2022-07-25 09:07 | XMS_ITS | Continuity of Care Document ---
Author Organization [employer] ems Address [address] [place] [address] [place] [address] Phone Care Team Providers Care Sewer And Drain Technician Name Role Phone Provider, CHS Unavailable [...] Diagnoses Date Provider Providers Copied on Encounter [facility], [address] [place], [address] tel:[phone] [facility] No Information 3 Provider [facility]. [address] [place], [place], [address] . tel: [phone] [facility], [address] [place], [place], [address] tel: [phone] [facility] No Information 2 [address]. [address] [place], [place], [address] . tel: [phone] OFFICE/OUTPAT IENT VISIT EST [facility], [address] [place], [place], [address] tel: [phone] [facility] Nursing Comments (chief complaint)H ep C Treatment Initiation (chief complaint) Body mass index (BMI) 28.0-28.9, adultChronic hepatitis C without hepatic coma 2 [address]. [address] [place], [place], [address] . tel: [phone] [facility], [address] [place], [address] tel:[phone] [facility] Personal history of other infectious and parasitic diseases 2 [address]. [address] [place], [place], [address] . tel: [phone] [facility], [address], [address] tel:[phone] [facility] History of hepatitis C 2 James Duff[address]any. [address] [place], [place], [address] . tel: [phone] [facility], [address] [place], [address] tel:[phone] [facility] History of hepatitis C 2 [facility]. [address] [place], [place], [address] . tel: [phone] Office[facility]pat ient visit,[email or web address], [address], [place], [address] tel:[phone] [facility] Nursing Comments (chief complaint) Essential hypertension 1 [facility]. [address] [place], [place], [address] . tel: [phone] [facility], [address], [address] tel:[phone] [facility] No Information 1 [facility]. [address] [place], [place], [address] . tel: [phone] Office/outpat ient visit,[facility], [address] [place], [address] tel:[phone] [facility] Nursing Comments (chief complaint)N P (chief complaint) Body mass index (BMI) 29.0-29.9, adultEncounter to establish careEncounter for screening for nutritional disorderHistory of hepatitis CImmunization dueEncounter for screening for HIVEssential hypertension 1 [facility]. [address] [place], [place], [address] . tel: [phone] As per patient privacy policy some of [...] taken at 6AM . 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 He is not fasting. Medications:None Surgeries/Hospitalizations:Appendectomy at age 8; it ruptured History of Hep C/Substance Abuse:Tested at [facility], was + for hep C; this was [...]
[2025-02-21 16:33] VITALS: BP 144/81
--- NOTE | 2025-02-21 17:06 | ED_ITS ---
HPI - General Adult General: Chief complaint: General Medical Stated complaint: wants bp checked Time Seen by Provider: 02/21/25 16:31 History of Present Illness: 49-year-old male with history of hyperte nsion presents emergency room's with concern for hypertension. He also appears quite anxious. He says his systolic was around 100 and so he was quite nervous but initially he would not come to the emergency room. Says he is homeless. He was staying with someone here that kicked him out for going to the emergency room. He has a family member that is coming to get him in a few days. He does not want to stay in here at all because his dog is outside Related Data Previous Rx's ?Medication ?Instructions ?Recorded hydroxyzine HCl 25 mg tablet 25 mg PO Q8H PRN anxiety #20 tabs 02/14/25 lisinopril 20 mg tablet 20 mg PO DAILY #30 tabs 02/04 04/30 Allergies Allergy/AdvReac Type Severity Reaction Status Date / Time No Known Allergies Allergy Verified 02/14/25 21:33 Review of Systems Narrative: Constitutional symptoms: Negative except as documented in HPI. Skin symptoms: Negative except as documented in HPI. Eye symptoms: Negative except as documented in HPI. ENMT symptoms: Negative except as documented in HPI. Respiratory symptoms: Negative except as documented in HPI. Cardiovascular symptoms: Negative except as documented in HPI. Gastrointestinal symptoms: Negative except as documented in HPI. Genitourinary symptoms: Negative except as documented in HPI. Musculoskeletal symptoms: Negative except as documented in HPI. Neurologic symptoms: Negative except as documented in HPI. Psychiatric symptoms: Negative except as documented in HPI. Endocrine symptoms: Negative except as documented in HPI. [facility] ED PFSH: Medical History (Updated 02/21/25 @ 16:33 by Shantel Peters MD) HTN (hypertension), benign Physical Exam Narrative: EXAM NARRATIVE: General: Alert, no acute distress. Skin: Warm, dry. Head: Normocephalic, atraumatic. Neck: Supple, trachea midline. Eye: Extraocular movements are intact. Ears, nose, mouth and throat: mucosa moist. Cardiovascular: Regular, Normal peripheral perfusion. Respiratory: Lungs are clear to auscultation, respirations are non-labored, breath sounds are equal, Symmetrical chest wall expansion. Gastrointestinal: Soft, Nontender, Non distended Musculoskeletal: Normal ROM, no deformity. Neurological: Alert and oriented, No focal neurological deficit observed. Psychiatric: Cooperative, appropriate mood & affect. Course Vital Signs: Vital signs: Vital Signs Blood Pressure 144/81 02/21/25 16:33 MDM - General Adult Medical Decision Making Medical decision making Patient's reason for coming to the emergency room: Hypertension Social determinants: Patient is homeless I reviewed the patient's medical record. Patient has been seen here in the emergency room a couple times for hypertension in the past I reviewed the patient's current home meds Currently on lisinopril and hydroxyzine Alternate historians: None Differential diagnosis including but not limited to and based on the above HPI, review of systems and physical exam: Patient presents with hypertension: Essent ial hypertension. Stroke. acute coronary syndrome. kidney failure. congestive heart failure. anxiety. Orders placed to evaluate differential diagnosis based on the above differential, HPI and physical exam Lab Review: Laboratory results were reviewed and interpreted by myself the emergency room physician. No lab draw today. Patient does not want any further workup. No EKG was done. He is pressure was improved and he wants to leave. Assessment and plan: Hypertension - Discharged home - Discussed plan with patient. Answered any questions. - Evaluation and treatment of this problem were appropriate in the emergency setting. All radiology interpretation(s) finalized by discharge Discharge Plan Discharge Patient Disposition: Home Clinical Impression: Anxiety Hypertension Qualifiers: Hypertension type: primary hypertension Qualified Code(s): I10 - Essential (primary) hypertension Condition: Stable Prescriptions: No Action lisinopril 20 mg tablet 20 mg PO DAILY Qty: 30 0RF hydroxyzine HCl 25 mg tablet 25 mg PO Q8H PRN (Reason: anxiety) Qty: 20 0RF Discharge Orders: Discharge ED (Routine); Ordered 02/21/25 Ordered By: Shantel Peters Discharge Diet: Usual diet Discharge Activity: Increase activity as tolerated Patient Instructions: Hypertension (ED), Opioid Safety, Pain Management, Patient Portal & Carlo Instructions Activity Restrictions/Additional Instructions: Thank you for choosing [facility] for your healthcare needs today. You have been screened and evaluated and felt safe for discharge. Health conditions do change or evolve sometimes and as such it is important that you follow up with your Primary Doctor to be re checked, 3-5 days is a general good time frame for follow up. You are always welcome to return to the ED for re assessment if your symptoms are worsening or you have new concerns Print Language: Syriac Coding Level of Care Code ED Compliance Investigator for Sofi Bishop
== END 2025-02-21 16:37 | disposition home or self-care (01) ==
PROVIDERS: Emergency Provider Emergency Medicine
DX: F41.9 Anxiety disorder, unspecified (principal); I10 Essential (primary) hypertension
CPT/HCPCS: 99281